=== PATIENT | male | born 1985 | race Caucasian/White ===

== ENCOUNTER 2024-03-05 14:25 | Emergency (ER) | payer OTHER, SELFPAY ==
[2024-03-05 14:29] VITALS: BP 114/73
[2024-03-05 14:29] LABS: Glucose - Point of Care 38 mg/dl (70-99)
[2024-03-05] MEDS: DEXTROSE 50% SYRINGE 25 GRAMS IV (14:35)
[2024-03-05 14:53] LABS: Glucose - Point of Care 145 mg/dl (70-99)
--- NOTE | 2024-03-05 14:53 | ED.GENMED ---
History of Present Illness
General
Chief Complaint: Blood Sugar Problem
Source: patient
Exam Limitations: clinical condition
Time Seen by Provider: 03/05/24 14:39
Nursing documentation reviewed up to this point in time: agreed with
History of Present Illness
History of Present Illness:
38 y/o M with h/o somewhat newly diagnosed diabetes
pulm htn/o2 requirement after pna hopsitalized november
was having eval for R heart failure with cardiac MRI today
he had breakfast and his normal 20 units of novolog and 70 units lantus
he did not eat lunch because of the study
he was able to complete the 2 hour MRI and then the techs realized he wasn't waking up, they thought he was sleeping but he was diaphoretic
they called rapid response and pt was disoriented but arousable; confused
his bg was 38
pt says he is not on any oral meds
Past History
Past History
ED Past Medical History: IDDM and Other (right heart failure on o2, pulm htn)
Social History
Tobacco: Non-smoker
Review of Systems
Review of Systems
Allergies reviewed?: Yes
All Other Systems: Not applicable
Phy Exam
Physical Exam
Physical Exam:
GENERAL: drowsy, irritable
EYE: pupils equal and reactive
NECK: Supple
ENT: o/p clr, mmm.
CARDIAC: Regular rate and rhythm .
LUNGS: Clear breath sounds bilaterally, no acute respiratory distress, no wheezes/rales/rhonchi
on o2;
ABDOMEN: Soft,obesewithout focal tenderness, no r/g, no cvat, normal bowel sounds
NEUROLOGICAL: Alert and oriented, no focal neuro deficits
SKIN: Warm and diaphoretic
MUSCULOSKELETAL: mild edema, well perfused. neg yolis's sign
PSYCH: Normal and appropriate interaction.
Course
Orders/Labs/Results
Orders:
Orders
03/05/24 14:29
Dextrose 50%-Water [Dextrose 50% Syringe] 25 grams .ROUTE .STK-MED ONE
03/05/24 14:39
Dextrose 50%-Water [Dextrose 50% Syringe] 25 grams IV NOW STA
03/05/24 14:40
Electrocardiogram (*1) Urgent
Reason for Study: Fatigue / Weakness
EKG- Treatment ONCE
03/05/24 14:43
Complete Blood Count/With Diff Urgent
03/05/24 15:21
Comprehensive Metabolic Panel Urgent
Abnormal Lab Results
03/05/24 03/05/24 03/05/24
14:28 14:43 14:51
MPV 10.6 H fL
(7.4-10.4)
Absolute Monos (auto) 0.7 H 10^3/uL
(0.1-0.6)
Monocytes % 10.2 H %
(1.7-9.3)
Glucose
POC Glucose 38 L* mg/dl 145 H mg/dl
(70-99) (70-99)
03/05/24 03/05/24
15:21 15:53
MPV
Absolute Monos (auto)
Monocytes %
Glucose 141 H mg/dl
(70-99)
POC Glucose 172 H mg/dl
(70-99)
03/05/24 14:43
03/05/24 15:21
Vital Signs
Initial and Last Documented VS:
Initial Vital Signs
Temp Pulse Resp BP Pulse Ox
97.5 F 78 18 114/73 98
03/05/24 14:29 03/05/24 14:29 03/05/24 14:29 03/05/24 14:29 03/05/24 14:29
Last Documented Vital Signs
Temp Pulse Resp BP Pulse Ox
97.5 F 78 18 111/75 99
03/05/24 14:29 03/05/24 15:35 03/05/24 15:35 03/05/24 15:35 03/05/24 15:35
MDM/Problems Addressed
Differential Diagnosis Includes:
hypoglycemia, near syncope, dysrhythmia, sepsis
MDM/Problems Addressed:
38-year-old male coming from outpatient MRI after having a diabetic crisis with a blood sugar that dropped while he was in the MRI machine. Patient apparently did not eat much for breakfast and still does his normal NovoLog and Lantus. He does not
take any oral hypoglycemics. He recalls feeling lightheaded in the machine and when they removed him he was minimally responsive and breathing. They did not check his blood sugar at the time. They called a rapid response and his vital signs were
normal. He was mildly disoriented and having a hard time focusing, diaphoretic. Patient's blood sugar was 38. He was given an amp of dextrose and oral fluids and then a meal. He maintained a blood sugar in the 140s to 170s 1 hour after eating.
He is very agitated about being here, does not want to miss his transportation ride for 30 and was demanding that he leave. He had been observed for over an hour. Given he has no oral hypoglycemics on board I felt it was okay for the patient to be
discharged at this point since he did not want further monitoring. Patient was counseled that he needs to eat a full meal when he gets home and dose his insulin appropriately
*Critical Care Note
Total Time (30-74mins, 75-104mins- exclusive of procedures): Not Applicable
ED Attending Note
-
Portions of this chart may have been created with voice recognition software.� Occasional wrong word or��sound alike� substitutions may have occurred due to the inherent limitations of voice recognition software.
Discharge Plan
Departure
Patient Disposition: Home (Routine Discharge)
Date of Disposition: 03/05/24
Time of Disposition: 15:58
Patient with high blood pressure during this ER visit?: No
Condition: Fair
Discharge Problem:
Low blood sugar
Instructions: Low Blood Sugar, Adult (DC)
Prescriptions:
No Action
furosemide 40 mg Tablet
40 mg PO BID
atorvastatin 80 mg Tablet
80 mg PO HS
ipratropium-albuterol 0.5 mg-3 mg(2.5 mg base)/3 mL Solution For Nebulization
3 ml INHALATION R Q6HPRN PRN (Reason: sob)
insulin glargine [Lantus U-100 Insulin] 100 unit/mL Solution
65 unit SC DAILY
levothyroxine 300 mcg Tablet
300 mcg PO DAILY
insulin aspart U-100 100 unit/mL Solution
20 unit SC AC
lisinopril 10 mg Tablet
10 mg PO DAILY
gabapentin 300 mg Capsule
300 mg PO HS
albuterol sulfate 90 mcg/actuation Hfa Aerosol Inhaler
2 puff INHALATION R Q4HPRN PRN (Reason: sob)
Referrals:
Jamie Donovan MD [Family Provider] -
Activity Restrictions/Additional Instructions:
Your sugar was very low. It was critically low and very dangerous. I am not sure why your sugar dropped but it probably is because you did not eat lunch. Make sure you are not overdosing her insulin by accident. Make sure to eat before you take
your insulin
Follow-up with your windows application administrator. We had offered to watch you in the ER further but you preferred to go home.
Interventions
Interventions:
*Risk Screen - Suicide Last Done: 03/05/24 14:29
*General Assessment Last Done: 03/05/24 14:29
*Neglect/Abuse Screening Last Done: 03/05/24 14:29
*Nursing Disposition Last Done: 03/05/24 16:22
ED- Neurological Assessment Last Done: 03/05/24 15:05
Discharge Date and Time
Discharge Date/Time: 03/05/24 16:23
Print Language: INDONESIAN
[2024-03-05 14:54] LABS: % Eosinophils 5.6 % (0-6); % Immature Granulocytes 0.3 % (0-0.5); % Lymphocytes 33.4 % (20.5-51.1); % Monocytes 10.2 % (1.7-9.3); % Neutrophils 49.5 % (42.2-75.2); Absolute Basophils 0.1 10^3/uL (0-0.2); Absolute Eosinophils 0.4 10^3/uL (0-0.7); Absolute Lymphocytes 2.3 10^3/uL (1.2-3.4); Absolute Monocytes 0.7 10^3/uL (0.1-0.6); Absolute Neutrophils 3.4 10^3/uL (1.4-6.5); Hematocrit 45.7 % (39.0-52.0); Hemoglobin 15.1 g/dL (13.0-18.0); Mean Corpuscular Hgb 28.7 pg (27.0-31.0); Mean Corpuscular Volume 86.7 fL (80.0-94.0); Mean Platelet Volume 10.6 fL (7.4-10.4); Nucleated Red Blood Cells % 0 % (-); Platelet Count 307 10^3/uL (130-400); Red Blood Cell Count 5.27 10^6/uL (4.70-6.10); Red Cell Dist. Width 13.5 % (11.5-14.5)
[2024-03-05 15:35] VITALS: BP 111/75
[2024-03-05 15:49] LABS: ALT (SGPT) 31 U/L (0-50); AST (SGOT) 28 U/L (17-59); Albumin 4.3 g/dl (3.5-5.0); Alkaline Phosphatase 91 U/L (38-126); Blood Urea Nitrogen 10 mg/dl (9-20); Carbon Dioxide 29 mmol/L (22-30); Chloride 99 mmol/L (98-107); Glucose 141 mg/dl (70-99); Sodium 138 mmol/L (135-145); Total Bilirubin 0.6 mg/dl (0.2-1.3); eGFR > 60.00
[2024-03-05 16:04] LABS: Glucose - Point of Care 172 mg/dl (70-99)
== END 2024-03-05 16:23 | disposition home or self-care (01) ==
LOC: EMR 14:25
PROVIDERS: Physician Assistant; EMERGENCY PHYSICIAN Emergency Medicine; FAMILY PHYSICIAN Family Medicine
DX: E11.649 Type 2 diabetes mellitus with hypoglycemia without coma (principal); I11.0 Hypertensive heart disease with heart failure; I50.810 Right heart failure, unspecified; I27.29 Other secondary pulmonary hypertension
CPT/HCPCS: 99284; 75561; 75565; 80053; 82962; 85025; 93005; A9585